=== PATIENT | female | born 1965 | race African-American/Black ===

== ENCOUNTER → 2019-07-31 | Outpatient (CLI) | payer BC, OTHER | LOC: RAD 13:26 | DX: Z12.31 Encounter for screening mammogram for malignant neoplasm of breast (principal) ==

== ENCOUNTER → 2020-08-25 | Outpatient (CLI) | payer OTHER | LOC: BC 09:39 | PROVIDERS: ATTEND Obstetrics & Gynecology | DX: Z12.31 Encounter for screening mammogram for malignant neoplasm of breast (principal) ==